=== PATIENT | female | born 1940 | race Caucasian/White ===

== ENCOUNTER 2017-12-03 14:22 | Outpatient (CLI) | payer MEDICARE | END 2017-12-03 14:23 | disposition home or self-care (01) | LOC: BICMAMMO 14:22 | DX: Z12.31 Encounter for screening mammogram for malignant neoplasm of breast (principal); Z80.3 Family history of malignant neoplasm of breast | CPT/HCPCS: 77063; 77067 ==

== ENCOUNTER 2018-01-21 14:22 | Outpatient (CLI) | payer MEDICARE, OTHER ==
--- NOTE | 2018-01-21 15:33 | ULT ---
BILATERAL COMPLETE BREAST ULTRASOUND: Date: 01/21/18 PROVIDED CLINICAL HISTORY: Screening. FINDINGS: Sonographic interrogation is performed of both breasts. No sonographically apparent mass or other con cerning finding. IMPRESSION: No sonographic abnormality of either breast is apparent. POS: NANY
== END 2018-01-21 14:23 | disposition home or self-care (01) ==
LOC: BICULT 14:22
DX: R92.2 Inconclusive mammogram (principal)
CPT/HCPCS: 76641

== ENCOUNTER 2018-12-08 10:45 | Outpatient (CLI) | payer MEDICARE, OTHER ==
--- NOTE | 2018-12-08 11:34 | MMO ---
Bilateral MAMMO Bilat Screen [facility]. CLINICAL HISTORY: Patient is 78 years old and is seen for screening. The patient has the following family history of breast cancer: mother. The patient has no personal history of cancer. VIEWS: The views performed were: bilateral craniocaudal with tomosynthesis and bilateral mediolateral oblique with tomosynthesis. FILMS COMPARED: The present examination has been compared to prior imaging studies performed at [facility] on 11/14/2015, 11/17/2016 and 12/03/2017, and at [facility] on 10/20/2014. MAMMOGRAM FINDINGS: The breasts are heterogeneously dense, which could obscure a lesion on mammography. There are stable benign appearing calcifications seen in both breasts. There are also vascular calcifications. There are no suspicious masses, suspicious calcifications, or new areas of architectural distortion. IMPRESSION: THERE IS NO MAMMOGRAPHIC EVIDENCE OF MALIGNANCY. A ROUTINE FOLLOW-UP MAMMOGRAM IN 1 YEAR IS RECOMMENDED. THE RESULTS OF THIS EXAM WERE SENT TO THE PATIENT. ACR BI-RADS Category 2 - Benign finding MAMMOGRAPHY NOTE: 1. A negative mammogram report should not delay a biopsy if a dominant of clinically suspicious mass is present. 2. Approximately 10% to 15% of breast cancers are not detected by mammography. 3. Adenosis and dense breasts may obscure an underlying neoplasm. Reported by: EMANUEL CLOUD MD Electonically Signed: [id number]
== END 2018-12-08 10:46 | disposition home or self-care (01) ==
LOC: BICMAMMO 10:45
DX: Z12.31 Encounter for screening mammogram for malignant neoplasm of breast (principal); Z80.3 Family history of malignant neoplasm of breast
CPT/HCPCS: 77063; 77067

== ENCOUNTER 2019-02-01 13:04 | Outpatient (CLI) | payer MEDICARE, OTHER ==
--- NOTE | 2019-02-01 13:54 | BD ---
BONE DENSITOMETRY USING DEXA: HISTORY: Post menopausal screening for osteoporosis. FINDINGS LUMBAR SPINE BMD (g/cm2) T-SCORE Z-SCORE L1 0.973 -0.2 2.1 L2 1.040 0.1 2.7 L3 1.098 0.1 2.8 L4 1.081 0.2 2.9 TOTAL 1.054 0.1 2.6 BMD (g/cm2) T-SCORE Z-SCORE NECK 0.628 -2.0 0.2 TOTAL 0.812 -1.1 0.9 IMPRESSION: Osteopenia. POS: [facility]
== END 2019-02-01 13:05 | disposition home or self-care (01) ==
LOC: BICMAMMO 13:04
DX: Z13.820 Encounter for screening for osteoporosis (principal); M85.80 Other specified disorders of bone density and structure, unspecified site
CPT/HCPCS: 77080

== ENCOUNTER 2020-07-12 08:01 | Outpatient (CLI) | payer MEDICARE, OTHER | END 2020-07-12 08:02 | disposition home or self-care (01) | LOC: BICMAMMO 08:01 | DX: Z12.31 Encounter for screening mammogram for malignant neoplasm of breast (principal); Z80.3 Family history of malignant neoplasm of breast | CPT/HCPCS: 77063; 77067 ==

== ENCOUNTER 2021-05-29 07:51 | Outpatient (CLI) | payer MEDICARE, OTHER | END 2021-05-29 07:52 | disposition home or self-care (01) | LOC: BICMAMMO 07:51 | DX: Z13.820 Encounter for screening for osteoporosis (principal); M85.852 Other specified disorders of bone density and structure, left thigh; M85.851 Other specified disorders of bone density and structure, right thigh | CPT/HCPCS: 77080 ==